=== PATIENT | female | born 1960 | race Hispanic/Latino ===

== ENCOUNTER → 2019-07-22 | Outpatient (CLI) | payer BC ==
[~2019-07-22] MED LIST: ATEN25TA PO; FOLI1TAB15 PO; HYDR25TA PO; ISOS30TA11 PO; LISI40TA4 PO; METF-444 PO; NAPR220C62 PO; PRAV40TA3 PO; VITAMIN B PO; latanoprost OU; timolol OU
== END | disposition home or self-care (01) ==
LOC: RAH 14:31
PROVIDERS: ATTEND Family Medicine
DX: Z12.31 Encounter for screening mammogram for malignant neoplasm of breast (principal)
CPT/HCPCS: 77067

== ENCOUNTER → 2022-04-01 | Outpatient (CLI) | payer BC ==
[~2022-04-01] MED LIST changes: -LISI40TA4 PO; +LISI40TA9 PO
== END | disposition home or self-care (01) ==
LOC: OIH 10:29
PROVIDERS: ATTEND Internal Medicine Cardiovascular Disease
DX: I25.110 Atherosclerotic heart disease of native coronary artery with unstable angina pectoris (principal)
CPT/HCPCS: 93306

== ENCOUNTER → 2022-04-15 | Outpatient (CLI) | payer BC ==
[~2022-04-15] VITALS: Ht 142.2 cm; Wt 60.8 kg
[~2022-04-15] MED LIST changes: +REGADENOSON 0.4 MG/5 ML PF SYG IVP SCH
== END | disposition home or self-care (01) ==
LOC: SHCH 08:20
PROVIDERS: ATTEND Internal Medicine Cardiovascular Disease
DX: I25.110 Atherosclerotic heart disease of native coronary artery with unstable angina pectoris (principal)
CPT/HCPCS: 78452; 96374; 93017; J2785; A9500 ×2

== ENCOUNTER → 2024-03-13 | Outpatient (CLI) | payer BC ==
[~2024-03-13] MED LIST changes: +IOHEXOL 350 MG/ML 100ML INFUS..BTL IV ONE; -REGADENOSON 0.4 MG/5 ML PF SYG IVP SCH
== END | disposition home or self-care (01) ==
LOC: RAH 11:24
PROVIDERS: ATTEND Internal Medicine Cardiovascular Disease
DX: R07.9 Chest pain, unspecified (principal); M47.815 Spondylosis without myelopathy or radiculopathy, thoracolumbar region
CPT/HCPCS: 75574; Q9967

== ENCOUNTER → 2024-04-10 | Outpatient (CLI) | payer BC ==
[~2024-04-10] MED LIST changes: -IOHEXOL 350 MG/ML 100ML INFUS..BTL IV ONE
== END | disposition home or self-care (01) ==
LOC: RAH 14:42
PROVIDERS: ATTEND Nurse Practitioner Family
DX: Z12.31 Encounter for screening mammogram for malignant neoplasm of breast (principal); R92.343 Mammographic extreme density, bilateral breasts; R92.1 Mammographic calcification found on diagnostic imaging of breast
CPT/HCPCS: 77067

== ENCOUNTER → 2025-04-11 | Outpatient (CLI) | payer BC ==
[~2025-04-11] MED LIST changes: +LISI40TA15 PO; -LISI40TA9 PO; -PRAV40TA3 PO; +PRAV40TA62 PO
== END | disposition home or self-care (01) ==
LOC: RAH 13:11
PROVIDERS: ATTEND Physician Assistant
DX: Z12.31 Encounter for screening mammogram for malignant neoplasm of breast (principal)
CPT/HCPCS: 77067

== ENCOUNTER → 2025-06-26 | Outpatient (CLI) | payer BC ==
--- NOTE | 2025-07-02 11:32 | HMCIMG ---
BILATERAL BREAST ULTRASOUND: CLINICAL HISTORY: Follow-up for prior mammogram due to dense breasts from 04/11/2025. Finding: Real-time examination of the both breasts demonstrates heterogeneous echotexture throughout both the breasts without evidence of focal solid or cystic masses. Both axillary appears to be normal. IMPRESSION: Dense breasts with no lesion seen. I would recommend annual mammography with tomography with bilateral breast sonogram. FINAL ASSESSMENT: ACR: BI-RAD- 2. Benign Finding.
== END | disposition home or self-care (01) ==
LOC: RAH 12:19
PROVIDERS: ATTEND Family Medicine
DX: R92.333 Mammographic heterogeneous density, bilateral breasts (principal); R92.8 Other abnormal and inconclusive findings on diagnostic imaging of breast